=== PATIENT | male | born 1955 | race Caucasian/White ===

== ENCOUNTER 2019-01-31 13:42 | Emergency (ER) | payer OTHER ==
[2019-01-31] MEDS ORDERED: PERCOCET 5MG/325MG TAB PO ONE (14:15)
[2019-01-31] MEDS ORDERED: ASPI81TA21 PO (14:21)
[2019-01-31] MEDS ORDERED: VITA500C24 PO (14:21)
[2019-01-31] MEDS ORDERED: OMEG1CAP16 PO (14:21)
[2019-01-31] MEDS ORDERED: PIOG1TAB PO (14:21)
[2019-01-31] MEDS ORDERED: METF500T13 PO (14:21)
[2019-01-31] MEDS ORDERED: MULT1TAB8 PO (14:21)
[2019-01-31] MEDS ORDERED: VITAD1000T PO (14:21)
[2019-01-31] MEDS ORDERED: VITA-157 PO (14:21)
[2019-01-31] MEDS ORDERED: GEMF600T5 PO (14:21)
[2019-01-31] MEDS ORDERED: GLIP10TA PO (14:21)
[2019-01-31] MEDS ORDERED: OMEP40CA2 PO (14:21)
--- NOTE | 2019-01-31 15:14 | REP ---
LEFT TIBIA AND FIBULA, FOUR VIEWS: HISTORY: Fall. There is no acute fracture or dislocation. The joint spaces are normal in appearance. IMPRESSION: There is no acute fracture or dislocation. Electronically Signed by Vamshi Ash MD 01/31/2019 03:26 P
--- NOTE | 2019-01-31 15:16 | REP ---
LEFT ANKLE FOUR VIEWS: HISTORY: Fall. There is no acute fracture or dislocation. The joint spaces are normal in appearance. An osteophyte is present on the tibia. Calcifications are present superior to the patella. This represents a tendon calcification. Soft tissue swelling is present. IMPRESSION: There is no acute fracture or dislocation. Electronically Signed by Vamshi Ash MD 01/31/2019 03:26 P
[2019-01-31] MEDS ORDERED: PERC5TAB12 PO (15:30)
[2019-01-31 15:41] VITALS: BP 178/95
== END 2019-01-31 16:05 | disposition home or self-care (01) ==
LOC: M ED 13:42 → EDBD 13:42 → M ED 16:05
DX: S86.812A Strain of other muscle(s) and tendon(s) at lower leg level, left leg, initial encounter (principal); M25.762 Osteophyte, left knee; M65.262 Calcific tendinitis, left lower leg; W19.XXXA Unspecified fall, initial encounter; Y92.099 Unspecified place in other non-institutional residence as the place of occurrence of the external cause; Y93.9 Activity, unspecified; Y99.9 Unspecified external cause status; Z79.82 Long term (current) use of aspirin; Z79.84 Long term (current) use of oral hypoglycemic drugs; Z79.899 Other long term (current) drug therapy; Z88.0 Allergy status to penicillin; Z88.5 Allergy status to narcotic agent; Z88.8 Allergy status to other drugs, medicaments and biological substances

== ENCOUNTER 2019-02-05 13:36 | Day surgery (SDC) | payer OTHER ==
[~2019-02-05] VITALS: Ht 193 cm; Wt 243.0 kg
[~2019-02-05 13:36] MED LIST: ASPI81TA21 PO; GEMF600T5 PO; GLIP10TA PO; METF500T13 PO; MULT1TAB8 PO; OMEG1CAP16 PO; OMEP40CA2 PO; PERC5TAB12 PO; PIOG1TAB PO; VITA-157 PO; VITA500C24 PO; VITAD1000T PO
[2019-02-05] MEDS ORDERED: IBUP-1022 PO (14:24)
[2019-02-05 14:38] LABS: HEMOGLOBIN 14.7 g/dl (13.5-17.5); MEAN CORPUSCULAR HEMOGLOBIN 32.3 pg (27.0-33.0); MEAN CORPUSCULAR HGB CONC 33.4 g/dl (32.0-36.5); MEAN CORPUSCULAR VOLUME 96.7 fl (80.0-96.0); PLATELET COUNT, AUTOMATED 247 10^3/uL (150-450); RED BLOOD COUNT 4.55 10^6/uL (4.30-6.10)
[2019-02-05 14:57] LABS: POTASSIUM SERUM 4.7 MEQ/L (3.5-5.1)
[2019-02-05 15:05] LABS: INR 1.04; PROTHROMBIN TIME 13.7 SECONDS (12.1-14.4)
[2019-02-05 15:06] LABS: PARTIAL THROMBOPLASTIN TIME 33.4 SECONDS (25.4-37.6)
[2019-02-05] MEDS ORDERED: PERCOCET 5MG/325MG TAB As Ordered ONE (17:28)
[2019-02-05] MEDS ORDERED: PERCOCET 5MG/325MG TAB PO ONE (17:45)
[2019-02-05] MEDS ORDERED: MIDAZOLAM INJ 2 MG/2 ML VIAL (J2250) As Ordered ONE (19:11)
[2019-02-05] MEDS ORDERED: dexameTHASONE 4 MG/ML 1ML VIAL (J1100) As Ordered ONE (19:11)
[2019-02-05] MEDS ORDERED: ONDANSETRON 4MG/2ML VIAL (J2405) As Ordered ONE (19:11)
[2019-02-05] MEDS ORDERED: LIDOCAINE 2% INJ 100 MG/5 ML SDV (FOR ANES.) As Ordered ONE (19:11)
[2019-02-05] MEDS ORDERED: ROCURONIUM BROMIDE 50 MG/5 ML VIAL As Ordered ONE (19:11)
[2019-02-05] MEDS ORDERED: PROPOFOL 200 MG/20 ML VIAL As Ordered ONE ×2 (19:11→20:27)
[2019-02-05] MEDS ORDERED: fentaNYL 100 MCG/2 ML INJECTION (J3010) As Ordered ONE ×2 (19:12→21:33)
[2019-02-05] MEDS ORDERED: HYDROmorphone HCL 2 MG/ML 1ML VIAL (J1170) As Ordered ONE (20:09)
[2019-02-05] MEDS ORDERED: BUPIVACAINE HCL 0.25% 30 ML VIAL As Ordered ONE ×2 (20:12→20:13)
[2019-02-05] MEDS ORDERED: SUGAMMADEX SODIUM 500 MG/5 ML VIAL (BRIDION) As Ordered ONE (20:27)
[2019-02-05] MEDS: fentaNYL 100 MCG/2 ML INJECTION (J3010) IV PRN ×4 (21:35→21:50)
[2019-02-05] MEDS ORDERED: PERCOCET 5MG/325MG TAB PO PRN (21:45)
[2019-02-05] MEDS ORDERED: METOCLOPRAMIDE INJ 10MG/2ML VIAL (J2765) IV PRN (21:45)
[2019-02-05] MEDS ORDERED: ACETAMINOPHEN TAB 650MG DOSE (2X325MG) PO PRN (21:45)
[2019-02-05] MEDS ORDERED: ONDANSETRON 4MG/2ML VIAL (J2405) IV PRN ×2 (21:45)
[2019-02-05] MEDS ORDERED: MORPHINE 4 MG/ML 1ML VIAL/SYRINGE (J2270) IV PRN (21:45)
[2019-02-05] MEDS ORDERED: ONDANSETRON 4 MG TAB (S0181) PO PRN (21:45)
[2019-02-05] MEDS ORDERED: LR 1,000 ML IV SCH ×2 (21:45→23:15)
[2019-02-05] MEDS ORDERED: MEPERIDINE INJ 25 MG/ML VIAL (J2175) IV PRN (21:45)
--- NOTE | 2019-02-05 22:01 | RO ---
DATE OF PROCEDURE: 02/05/2019 PREOPERATIVE DIAGNOSIS: Left quadriceps tendon tear. POSTOPERATIVE DIAGNOSIS: Left quadriceps tendon tear. PLANNED PROCEDURE: Repair of left quadriceps tendon. PROCEDURE PERFORMED: Repair of left quadriceps tendon. SURGEON: Loki Rojo MD WIND TURBINE INSTALLER: TYPE OF ANESTHESIA: General anesthetic. BEATER OUT LEVELING MACHINE: Dr. Bullock OPERATIVE PREAMBLE: This 63-year-old man slipped and fell down some stairs while going out to walk his dog in the rain. He hyperflexed his knees. I saw him in assessment clinic and diagnosed him with quadriceps tendon tear. We talked about the pros, cons, risks and benefits of going ahead with surgical repair. I reminded him of the specific surgical risks in preoperative holding which include but are not limited to infection, neurovascular injury, pain, bleeding, stiffness, failure or re-rupture, as well as anesthetic complications and . He wished to go ahead and I marked his left knee. DESCRIPTION OF PROCEDURE: The patient was brought to the operating theater, placed supine on the operating room table. Two grams of intravenous (IV) Ancef was administered. General anesthesia was induced. The site and the patient was confirmed with preoperative time-out. The left lower extremity was prepped and draped in the usual sterile fashion with a stockinette over the foot and split sheets. Once the prep solution had thoroughly dried, the leg was elevated and tourniquet inflated to 250 mmHg at the thigh, which stayed there until it was taken down at approximately 46 minutes for the case. Anterior midline workhorse incision was made over the quadriceps tendon and carried down through skin and subcutaneous tissue, achieved meticulous hemostasis. I identified the site of the quadriceps tendon rupture. I thoroughly debrided the proximal pole of the patella to create a bleeding bone surface for healing. Next, I cleared away any interposed hematoma, thoroughly irrigated the joint. I then passed #2 FiberWire sutures in a running locking Krackow type stitch. I passed three of those up and down for the medial, lateral and middle limbs. I then used a 2.5 mm drill to drill three longitudinal drill holes from proximal to distal in the patella. I then used the inFreeDA suture passer to pass two suture tails of each limb through each drill hole. I then tied the two lateral suture limbs to one of the middle ones as well as the two medial suture limbs to the appropriate middle suture limb. I then tied the suture limbs to each other. I tied these in full extension and ensured that the quadriceps tendon was opposed to the superior pole of the patella. I then cut the sutures short. Then I performed a retinacular repair, again using interrupted and a combination of running #2 FiberWire sutures. I then also closed the superficial layer of the quadriceps tendon to the superficial tissues overlying the patella as able. I tested the repair. There was no gapping up to about 80 or 90 degrees of flexion. Repair appeared solid. I then thoroughly irrigated the knee with normal saline. I performed closure of the subcutaneous tissue with interrupted #2-0 Vicryl sutures and the skin with rosie. Skin was cleaned with a wet and dry dressing followed by application of Adaptic nonstick dressing, a sterile 4 x 8 gauze and ABD dressings overwrapped with two sterile 6-inch Kenny bandages. The knee was kept in full extension and placed into a hinged knee brace locked in full extension. The patient was woken up from general anesthetic, transferred off the operating table and taken to the postanesthetic care unit in stable condition. All sponge, needle and instrument counts were correct, and there were no complications. Blood loss was estimated to be 20 mL. PLAN: The patient is to be weightbearing as tolerated in full extension in a brace. I would like to see the patient followup in about 2 weeks time. He may spend overnight in the hospital as it is now approximately 9:22 p.m. for their own comfort and safety. He will be on a 23-hour admit, and be discharged home when they are comfortable. Our office has already faxed in a prescription to his pharmacy, and he still has some remaining pain medications from the first visit.
[2019-02-05] MEDS ORDERED: HYDROMORPHONE HCL 0.5 MG/ 0.5 ML SYRINGE (J1170 PER 1) As Ordered ONE (22:06)
[2019-02-05] MEDS: HYDROMORPHONE HCL 0.5 MG/ 0.5 ML SYRINGE (J1170 PER 1) IV PRN ×3 (22:08→22:18)
[2019-02-05 23:00] VITALS: BP 140/80
[2019-02-05 23:30] VITALS: BP 137/97
[2019-02-06 00:30] VITALS: BP 140/86
[2019-02-06] MEDS: PERCOCET 5MG/325MG TAB PO PRN ×3 (01:23→10:15)
[2019-02-06 01:30] VITALS: BP 152/90
[2019-02-06 02:00] VITALS: BP 148/92
[2019-02-06 06:00] VITALS: BP 127/87; O2SAT 98
== END 2019-02-06 11:05 | disposition home or self-care (01) ==
LOC: M SDC 13:36 → M MS5PR 22:50 → M SDC 02-06 11:05
PROVIDERS: ATTEND Orthopaedic Surgery Sports Medicine
DX: S76.112A Strain of left quadriceps muscle, fascia and tendon, initial encounter (principal); W10.8XXA Fall (on) (from) other stairs and steps, initial encounter; Y93.K1 Activity, walking an animal; Y92.89 Other specified places as the place of occurrence of the external cause; Y99.9 Unspecified external cause status; E78.49 Other hyperlipidemia; E11.9 Type 2 diabetes mellitus without complications; Z79.84 Long term (current) use of oral hypoglycemic drugs; K21.9 Gastro-esophageal reflux disease without esophagitis; Z79.899 Other long term (current) drug therapy
CPT/HCPCS: 27385; 36415; 80051; 85027; 85610; 85730; 96374; 96375; J0690; J1100; J1170; J2250; J2270; J2405; J3010

== ENCOUNTER 2020-04-19 11:08 | Emergency (ER) | payer OTHER ==
[~2020-04-19] VITALS: Ht 193 cm; Wt 109.1 kg
[~2020-04-19 11:08] MED LIST changes: +CHOL100029 PO; +IBUP-1022 PO; -OMEP40CA2 PO; +OMEP40CA97 PO; -VITAD1000T PO
[2020-04-19 11:56] LABS: BASO % 0.5 % (0.0-1.0); EOS % 0.1 % (0.0-3.0); HEMATOCRIT 46.6 % (42.0-52.0); HEMOGLOBIN 15.8 g/dl (13.5-17.5); LYMPH # 1.9 10^3/uL (1.5-5.0); MEAN CORPUSCULAR HEMOGLOBIN 31.5 pg (27.0-33.0); MEAN CORPUSCULAR HGB CONC 33.9 g/dl (32.0-36.5); MEAN CORPUSCULAR VOLUME 92.8 fl (80.0-96.0); MONO # 1.1 10^3/uL (0.0-0.8); NEUTROPHILS # 5.7 10^3/uL (1.5-8.5); NEUTROPHILS % 64.8 % (36.0-66.0); PLATELET COUNT, AUTOMATED 192 10^3/uL (150-450); RED BLOOD COUNT 5.02 10^6/uL (4.30-6.10); WHITE BLOOD COUNT 8.7 10^3/uL (4.0-10.0)
[2020-04-19] MEDS ORDERED: NS 1,000 ML IV ONE (12:30)
[2020-04-19] MEDS ORDERED: LOPERAMIDE 2 MG CAPLET PO ONE (12:30)
[2020-04-19 12:41] LABS: ALBUMIN 3.7 GM/DL (3.2-5.2); BILIRUBIN,DIRECT 0.3 MG/DL (0.0-0.2); BILIRUBIN,TOTAL 0.8 MG/DL (0.2-1.0); TOTAL PROTEIN 7.5 GM/DL (6.4-8.2)
[2020-04-19 14:27] LABS: CALCIUM LEVEL 9.2 MG/DL (8.8-10.2); CREATININE FOR GFR 1.71 MG/DL (0.70-1.30); GLOMERULAR FILTRATION RATE 42.9 (>49); POTASSIUM SERUM 4.3 MEQ/L (3.5-5.1)
[2020-04-19] MEDS ORDERED: LOPE-39 PO (14:43)
[2020-04-19 14:53] VITALS: BP 145/89
--- NOTE | 2020-04-20 07:39 | REP ---
ABDOMINAL SERIES: REASON: Abdominal pain. FINDINGS: Supine and upright views of the abdomen show the intestinal gas pattern to be nonspecific. Gas and stool is seen throughout the colon within the rectosigmoid region. The organ silhouettes insofar as delineated appear unremarkable. No abdominal calcific densities are seen within the abdomen or pelvis. The accompanying single frontal view of the chest shows no free subdiaphragmatic air, cardiomegaly, infiltrates, or effusions. IMPRESSION: Nonspecific intestinal gas pattern. Electronically Signed by Bertin Osullivan DO 04/20/2020 08:00 A
--- NOTE | 2020-04-20 08:32 | ECGEPIP ---
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
== END 2020-04-19 14:54 | disposition home or self-care (01) ==
LOC: M ED 11:08
DX: E86.0 Dehydration (principal); E11.9 Type 2 diabetes mellitus without complications; I10 Essential (primary) hypertension; Z79.899 Other long term (current) drug therapy; Z79.84 Long term (current) use of oral hypoglycemic drugs; Z79.82 Long term (current) use of aspirin; Z88.0 Allergy status to penicillin; Z88.5 Allergy status to narcotic agent; Z88.8 Allergy status to other drugs, medicaments and biological substances